=== PATIENT | female | born 1970 | race Caucasian/White ===

== ENCOUNTER → 2017-02-15 | Outpatient (CLI) | payer OTHER ==
--- NOTE | 2017-02-15 11:09 | ECHOF ---
Referral Reason:R07.89 chest pain MEASUREMENTS -------- HEIGHT: 170.2 cm WEIGHT: 72.6 kg BP: 105/55 IVSd: 0.7 cm (0.6 - 1.1) LVIDd: 4.6 cm (3.9 - 5.3) LVPWd: 0.9 cm (0.6 - 1.1) IVSs: 1.2 cm LVIDs: 3.5 cm LVPWs: 1.2 cm Ao Diam: 2.9 cm (2.0 - 3.7) AV Cusp: 1.2 cm (1.5 - 2.6) LA Diam: 2.1 cm (2.7 - 3.8) MV EXCURSION: 12.755 mm (> 18.000) MV EF SLOPE: 119 mm/s (70 - 150) EPSS: 0.8 cm MV E Conner: 0.58 m/s MV DecT: 266 ms MV A Conner: 0.54 m/s MV E/A Ratio: 1.07 RAP: 5.00 mmHg RVSP: 17.98 mmHg FINDINGS -------- Sinus rhythm. This was a technically good study. Left ventricular wall thickness is normal. Overall left ventricular systolic function is mildly impaired with, an EF between 45 - 50 %. The right ventricle is normal in size and function. The left atrium is normal in size. The right atrium is normal in size. The aortic valve is trileaflet, and appears structurally normal. No aortic stenosis or regurgitation. Mild mitral regurgitation is present. Mild tricuspid regurgitation present. The right ventricular systolic pressure, as measured by Doppler, is 17.98mmHg. Pulmonic valve appears structurally normal. The aortic root size is normal. The pericardium is normal. CONCLUSIONS -------- 1. Sinus rhythm. 2. Mild tricuspid regurgitation present. 3. The right ventricular systolic pressure, as measured by Doppler, is 17.98mmHg. 4. Pulmonic valve appears structurally normal. 5. The aortic root size is normal. 6. The pericardium is normal. 7. This was a technically good study. 8. Left ventricular wall thickness is normal. 9. Overall left ventricular systolic function is mildly impaired with, an EF between 45 - 50 %. 10. The right ventricle is normal in size and function. 11. The left atrium is normal in size. 12. The right atrium is normal in size. 13. The aortic valve is trileaflet, and appears structurally normal. No aortic stenosis or regurgitation. 14. Mild mitral regurgitation is present. SENIOR MARKETING ENGINEER: Paulette Connors RDCS
--- NOTE | 2017-02-15 14:34 | PCN ---
DATE OF SERVICE: 02/15/2017 STRESS ECHOCARDIOGRAM: INDICATION: Chest pain. BASELINE HEART RATE: 84 BASELINE BLOOD PRESSURE: 110/75 MAXIMUM HEART RATE: 152 MAXIMUM BLOOD PRESSURE: 165/64 85% MPHR: 146 100% MPHR: 172 METS: 9.7 MAXIMUM STAGE REACHED: 2 TOTAL EXERCISE TIME: 8:00 Baseline EKG shows sinus rhythm, normal axis, normal intervals. Patient exercised on Inocente protocol for a total of 8 minutes achieving 9 METS, 88% of predicted maximum heart rate without chest pain or diagnostic ST segment depression. Test was stopped secondary to shortness of breath. CONCLUSION: 1. Good exercise tolerance. 2. Negative stress test by EKG criteria. MTDD
--- NOTE | 2017-02-19 11:50 | EST ---
DATE OF SERVICE: 02/15/2017 STRESS TEST: INDICATION: Chest pain. BASELINE HEART RATE: 84 BASELINE BLOOD PRESSURE: 110/75 MAXIMUM HEART RATE: 152 MAXIMUM BLOOD PRESSURE: 165/64 85% MPHR: 146 100% MPHR: 172 METS: 9.7 MAXIMUM STAGE REACHED: 2 TOTAL EXERCISE TIME: 8:00 FINDINGS: Baseline EKG shows sinus rhythm, normal axis, normal intervals. Patient exercised on Inocente protocol for a total of 8 minutes achieving 9 METS, 88% of predicted maximum heart rate without chest pain or diagnostic ST segment depression. Test was stopped secondary to shortness of breath. CONCLUSION: 1. Good exercise tolerance. 2. Negative stress test by EKG criteria. MTDD
== END | disposition home or self-care (01) ==
LOC: RADECHMAIN 08:28
PROVIDERS: ATTEND Family Medicine
DX: I08.1 Rheumatic disorders of both mitral and tricuspid valves (principal)
CPT/HCPCS: 93017; 93306